=== PATIENT | female | born 1970 | race American Indian/Alaskan Native ===

== ENCOUNTER 2017-10-05 11:25 | Emergency (ER) | payer SELFPAY ==
[2017-10-05 12:03] LABS: ANION GAP 13.3; CHLORIDE,CL 94 mmol/L (101-111); SODIUM,NA 128 mmol/L (135-145)
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
[2017-10-05] MEDS ORDERED: cefTRIAXone 1 GM Vial IVPUSH ONE (13:13)
--- NOTE | 2017-10-05 13:17 | CR ---
Clinical history: 47-year-old female right chest pain and shortness of breath. No previous chest radi ographs this institution. Interpretation: Markedly Abnormal. 1. *Large dependent left pleural effusion filling the lower half of the left hemithorax (underlying f racture of the posterior left seventh rib). Trauma? Pathologic rib fracture? 2. Focal peripheral right midlung infiltrate or infarct. Lung contusion possible but no underlying ri b fracture or right pleural effusion. 3. Normal cardiac silhouette without cephalization of flow or signs of alveolar edema. 4. Mild arthritic changes dorsal spine but no sign of pathologic skeletal lesion, thoracic fracture o r dislocation. (Cholecystectomy). 5 no pneumothorax or pneumomediastinum.
== END 2017-10-05 14:00 ==
LOC: DL.ED 11:25
DX: J18.9 Pneumonia, unspecified organism (principal); R18.8 Other ascites
CPT/HCPCS: 36415; 71046; 80053; 80305; 81001; 81025; 82140; 82150; 83605; 83690; 83735; 85025; 87040; 87077; 96374; 99284; 99285; G0480; J0696